=== PATIENT | female | born 1980 | race Caucasian/White ===

== ENCOUNTER 2024-08-30 16:05 | Inpatient (IN) | payer MEDICARE, MEDICAID, SELFPAY ==
--- NOTE | 2024-08-30 16:37 | ED_ITS ---
HPI - General Adult General Chief complaint: Psychiatric Symptoms Stated complaint: Section 12, psychiatric hx Time Seen by Provider: 08/30/24 16:14 Source: patient and EMS Mode of arrival: EMS Limitations: other (appears paranoid ) History of Present Illness ED Provider: THERESA Jacob HPI narrative: This is a 44-year-old female history of bipolar disorder and major depression, presents for abnormal behavior over the past few days. Patient poor historian and unable to tell me what is going on however she tells me she is coming off of some of her medicines such as amphetamines and she was recently started on a new medicine. According to section 12 which was filled out in the field patient experiencing paranioa, delusional, innability to sleep x few days. When I asked her how she is feeling she tells me she feels like her brother who was in shackles. Denies suicidal and homicidal ideation. No medical complaints. Related Data Allergies Allergy/AdvReac Type Severity Reaction Status Date / Time haloperidol [From Haldol] AdvReac Unknown DYSTONIA Verified 08/30/24 16:42 risperidone [From Risperdal] AdvReac Unknown TREMORS,JERKY Verified 08/30/24 16:42 MOVEMENTS From Haldol AdvReac Unknown DYSTONIA Uncoded 02/28/20 17:37 From Thorazine AdvReac Unknown LOW BLOOD Uncoded 02/28/20 17:37 PRESSURE Review of Systems 2 Review of Systems: Yes all other systems are reviewed and are negative [facility] Past Medical History Attestation statement: The following information was validated with the patient. Source: old records reviewed and nursing notes reviewed Medical History (Updated 08/30/24 @ 16:48 by Tereza Schumacher RN) MDD (major depressive disorder) Schizoaffective disorder Social History Social History Smoked in Last 30 Days: No Use of substances other than those prescribed or required for medical reasons: No Advance Directives: No Advance Directives Information Provided: No Do you have a plan to hurt others: No Plan Patient : No Physical Exam ED Vital Signs: Vital Signs - 24 hr 08/30/24 16:38 Temperature 97.9 F Pulse Rate 114 H Respiratory Rate 16 Blood Pressure 151/94 H Pulse Oximetry 97 Oxygen Delivery Method Room Air BMI result Body Mass Index 37.4 Vital signs state Appearance: Alert.? Oriented X3.? No acute distress.? Patient appears paranoid, and anxious Head: Normocephalic, atraumatic, no step-offs or deformities Eyes: Pupils equal, round and reactive to light.? ENT: Pharynx normal.? Neck: Normal inspection.? Neck supple.? CVS: Normal heart rate and rhythm.? Pulses normal.? Respiratory: No respiratory distress.? Breath sounds normal.? Abdomen: Soft and nontender.? Skin: Skin warm and dry.? Normal skin color.? Normal skin turgor.? Extremities: No lower extremity edema.? No calf ttp. 5/5 strength to bilateral upper and lower extremities Back: No midline tenderness, no C-spine tenderness, full range of motion, no CVA tenderness bilaterally Neuro: Oriented X 3.? No motor deficit.? No sensory deficit. CN 2-12 intact Course Reevaluation(s) Reevaluation #1: CBC unremarkable. Chemistry no acute findings meeting intervention. Beta hCG negative. UA with greater than 20 epithelial cells and 4+ bacteria this is likely contamination repeat UA at this time. Nurse aware of this. Patient has no UTI symptoms therefore will not treat for UTI at this time unless repeat urine suggest otherwise. Urine toxicology positive for amphetamines which patient reported she was taking. Ethanol negative. At this time patient to be placed into observation to allow more time to be evaluated by care team. At time observation was started patient common cooperative no acute distress will continue to monitor Time: 18:38 Medical Decision Making Medical Decision Making [facility] Narrative: 44-year-old female presents with paranoia, recent medication changes, inability to sleep times a few days. Physical exam patient appears paranoid. Alert and oriented x4. History and physical exam concerning for paranoia versus bipolar versus schizophrenia. Possibly secondary to medication changes or non med compliance. Will rule out metabolic derangements. Unlikely encephalitis, meningitis, acute intracranial hemorrhage, stroke. Medical clearance evaluation by care team Differential Diagnosis Differential Diagnoses: The differential diagnosis associated with the presentation includes (History and physical exam concerning for paranoia versus bipolar versus schizophrenia. Possibly secondary to medication changes or non med compliance. Will rule out metabolic derangements. Unlikely encephalitis, meningitis, acute intracranial hemorrhage, stroke.) Admission/Observation Consideration of admission/observation: Escalation of care including admission/observation considered Lab Data [facility] Lab Attestation statement: I reviewed the patient's lab results. 08/30/24 17:12 08/30/24 17:12 Labs: Lab Results 08/30/24 08/30/24 Range/Units 17:12 17:49 WBC 8.0 (4.8-10.8) X10*3/uL RBC 4.12 L (4.20-5.50) X10*6/uL Hgb 13.5 (12.0-16.0) g/dl Hct 36.9 L (37.0-47.0) % MCV 89.6 (80.0-98.0) fL MCH 32.8 (27.0-33.0) pg MCHC 36.6 H (31.0-35.0) g/dl RDW 11.5 (11.0-16.0) % Plt Count 276 (160-400) X10*3/uL MPV 8.5 L (9.4-12.3) fL Immature Gran % (Auto) 0.2 (0.0-0.4) % Neut % (Auto) 81.7 H (45-73) % Lymph % (Auto) 7.0 L (20-40) % [place] % (Auto) 10.7 (2-11) % Eos % (Auto) 0.2 (0-4) % Baso % (Auto) 0.2 (0-2) % Lymph # (Auto) 0.6 L (1.2-4.9) X10*3/uL [place] # (Auto) 0.9 (0.1-1.2) X10*3/uL Eos # (Auto) 0.0 (0.0-0.4) X10*3/uL Baso # (Auto) 0.0 (0.0-0.2) X10*3/uL Abs Immat Gran (auto) 0.02 (0.00-0.03) X10*3/uL Absolute Neuts (auto) 6.6 (2.0-8.3) x10*3/uL Absolute Nucleated RBC 0.000 (0.0-0.012) X10*3/uL Nucleated RBC % (auto) 0.0 (0.0-0.2) /100WBC Sodium 135 (135-145) mmol/L Potassium 4.2 (3.3-5.1) mmol/L Chloride 105 (96-108) mmol/L Carbon Dioxide 23 (22-29) mmol/L Anion Gap 11 L (12-20) BUN 14 (9-16) mg/dL Creatinine 0.66 (0.5-1.4) mg/dL Estim Creat Clear Calc 130.1 Estimated GFR > 60 Random Glucose 86 (60-115) mg/dL Calcium 9.1 (8.4-10.2) mg/dL Magnesium 1.9 (1.6-2.6) mg/dL Total Bilirubin 0.5 (0.0-1.0) mg/dL AST 18 (5-31) U/L ALT 26 (0-31) U/L Alkaline Phosphatase 53 (39-117) U/L Total Protein 7.2 (6.5-8.0) g/dL Albumin 4.1 (3.5-5.0) g/dL Beta HCG, Quant < 2 mIU/mL Urine Color Yellow Urine Appearance Turbid Urine pH 6.0 (5.0-9.0) Ur Specific [place] 1.020 (1.005-1.025) Urine Protein Negative (Neg-Trace) mg/dL Urine Glucose (UA) Negative (Negative) mg/dL Urine Ketones 15 (Negative) mg/dL Urine Blood Negative (Negative) Urine Nitrite Negative (Negative) Ur Leukocyte Esterase Small (1+) H (Negative) Urine RBC 0-2 (0-2) /HPF Urine WBC 11-20 H (0-5) /HPF Ur Squamous Epith Cells >20 (0-2) /HPF Urine Bacteria 4+ (None Seen) Hyaline Casts 0-2 (0-2) /LPF Urine Opiates Screen Not Detected (Not Detect) Ur Buprenorphine Scrn Not Detected (Not Detect) ng/mL Ur Oxycodone Screen Not Detected (Not Detect) ng/mL Urine Methadone Screen Not Detected (Not Detect) ng/mL Urine Fentanyl Screen Not Detected (Not Detect) Ur Barbiturates Screen Not Detected (Not Detect) Ur Phencyclidine Scrn Not Detected (Not Detect) Ur Amphetamines Screen POSITIVE H (Not Detect) U Benzodiazepines Scrn Not Detected (Not Detect) Urine Cocaine Screen Not Detected (Not Detect) U Marijuana (THC) Screen Not Detected (Not Detect) Ethyl Alcohol < 10 mg/dL Independent Interpretation I performed an independent interpretation of an: CT Scan Radiology Impression Discussion of test interpretation with radiology: I have reviewed the radiologist's reading. Independent Historian Clinical information obtained from an independent historian. History obtained from or confirmed by: EMS Prescription Management None avalible Chronic Conditions Patient?s care impacted by: Other (MDD, bipolar, schizoaffective) Critical Care Time Critical Care Time Critical Care Time: No Discharge Plan Discharge Clinical Impression: Depression, Paranoia, Bipolar 1 disorder Patient Disposition: Still a Patient Interventions: [place]-Suicide Risk Severity Scale Last Done: 08/30/24 16:49 Print Language: Armenian
[2024-08-30 16:38] VITALS: BP 151/94; PULSE 114; RESP 16; TEMP 36.6; O2SAT 97; BMI 37.4
--- NOTE | 2024-08-30 17:13 | PC.NURSE ---
mothers number Kat Kolber- [phone]
[2024-08-30 17:21] LABS: MANUAL DIFF FLAG NO
[2024-08-30 17:26] LABS: Basophils Percent Auto 0.2 % (0-2); Eosinophils Percent Auto 0.2 % (0-4); Hematocrit 36.9 % (37.0-47.0); Hemoglobin 13.5 g/dl (12.0-16.0); Imm Gran Abs Auto 0.02 X10*3/uL (0.00-0.03); Imm Gran Pct Auto 0.2 % (0.0-0.4); Lymphocytes Absolute Auto 0.6 X10*3/uL (1.2-4.9); Mean Corpuscular HGB Conc 36.6 g/dl (31.0-35.0); Mean Corpuscular Hemoglobin 32.8 pg (27.0-33.0); Mean Corpuscular Volume 89.6 fL (80.0-98.0); Mean Platelet Volume 8.5 fL (9.4-12.3); Monocytes Absolute Auto 0.9 X10*3/uL (0.1-1.2); Monocytes Percent Auto 10.7 % (2-11); Neutrophils Absolute Auto 6.6 x10*3/uL (2.0-8.3); Neutrophils Percent Auto 81.7 % (45-73); Platelet Count 276 X10*3/uL (160-400); Red Blood Count 4.12 X10*6/uL (4.20-5.50); Red Cell Distribution Width 11.5 % (11.0-16.0)
[2024-08-30 17:49] LABS: Alanine Aminotransferase 26 U/L (0-31); Albumin Level 4.1 g/dL (3.5-5.0); Alkaline Phosphatase 53 U/L (39-117); Anion Gap 11 (12-20); Aspartate Amino Transferase 18 U/L (5-31); Bilirubin Total 0.5 mg/dL (0.0-1.0); Blood Urea Nitrogen 14 mg/dL (9-16); Calcium 9.1 mg/dL (8.4-10.2); Carbon Dioxide 23 mmol/L (22-29); Chloride 105 mmol/L (96-108); Creatinine Clr Calc Pharmacy 130.1; Estimated Glomerular Filt Rate > 60; Ethanol < 10 mg/dL; Glucose Random 86 mg/dL (60-115); Magnesium 1.9 mg/dL (1.6-2.6); Potassium 4.2 mmol/L (3.3-5.1); Sodium 135 mmol/L (135-145); Total Protein 7.2 g/dL (6.5-8.0)
[2024-08-30 17:56] LABS: HCG Quantitative < 2 mIU/mL
[2024-08-30 18:09] LABS: Appearance Urine Turbid; Color Urine Yellow; Glucose Urine UA Negative (Negative); Leukocyte Esterase Urine Small (1+) (Negative); Nitrite Urine Negative (Negative); UMIC TRIGGER UACC YES; Urine Blood Negative (Negative); Urine Ketones 15 mg/dL (Negative); Urine Protein Negative (Neg-Trace)
[2024-08-30 18:14] LABS: Bacteria Urine 4+ (None Seen); Hyaline Casts Urine 0-2 /LPF (0-2); RBC Urine 0-2 /HPF (0-2); Squamous Epithelial Cell Urine >20 /HPF (0-2); UACC Culture Trigger YES
[2024-08-30 18:17] LABS: Amphetamine Screen Urine POSITIVE (Not Detect); Barbiturates, Urine Not Detected (Not Detect); Benzodiazepines Screen Urine Not Detected (Not Detect); Buprenorphine Scr Not Detected (Not Detect); Cannabinoid Screen Urine Not Detected (Not Detect); Cocaine Screen Urine Not Detected (Not Detect); Fentanyl, urine Not Detected (Not Detect); Methadone Screen, Urine Not Detected (Not Detect); Opiate Screen Urine Not Detected (Not Detect); Oxycodone Screen Urine Not Detected (Not Detect); Phencyclidine Screen Urine Not Detected (Not Detect)
[2024-08-30] MEDS: OLANZapine 10 MG TABLET PO ×2 (19:31→22:57)
[2024-08-30] MEDS: diphenhydrAMINE HCL 25 MG CAPSULE 50 MG PO (19:31)
[2024-08-30] MEDS: LORazepam 1 MG TABLET 2 MG PO (19:31)
--- NOTE | 2024-08-30 19:44 | ECG_ITS ---
Test Reason : QT PROLONG Blood Pressure : */* mmHG Vent. Rate : 102 BPM Atrial Rate : 102 BPM P-R Int : 158 ms QRS Dur : 96 ms QT Int : 350 ms P-R-T Axes : 43 14 19 degrees QTcB Int : 456 ms Sinus tachycardia Otherwise normal ECG When compared with ECG of 25-Feb-2009 07:13, No significant changes seen Referred By: Saskia Jacob Electronically Signed By: Rolo Ladd
--- NOTE | 2024-08-30 22:19 | PC.ADMIT ---
Keely is a 44 year old Swedish speaking female being admitted to on a 12b from the [facility] for Bipolar disorder with psychotic features and Stimulant use disorder. She She states that she has been using Adderall for the past 25 years . Per the crisis report the patients outside care team noted a change in the patients mental status, noting a new onset of confusion, paranoia, and delusional thought process. the patients mother and outside providers confirmed that the patients change in behavior seems to coincide with the patient being started on Caplyta last week. Keely is alert to self but is unsure of where she is or why she is here. patient declined to sign any admission documentation and was minimally cooperative with the admission. her skin check was unremarkable, the patient was partially oriented to her room, the nurses station and day room.
[2024-08-30] MEDS: traZODone HCL 50 MG TABLET PO (22:57)
[2024-08-30 23:05] VITALS: BP 140/83; PULSE 103; RESP 18; TEMP 36.9; O2SAT 94; BMI 36.0
[2024-08-31 07:30] VITALS: BP 128/76; PULSE 94; RESP 16; TEMP 36.8; O2SAT 98
[2024-08-31 08:00] VITALS: BP 128/76; PULSE 94; RESP 16; TEMP 36.8; O2SAT 93
[2024-08-31 08:28] LABS: Estimated Average Glucose 94 mg/dL; Hemoglobin A1c % 4.9 % (<6.0); Total Hemoglobin (HGBA1C) 3634.8008 umol/L
[2024-08-31 08:29] LABS: Alanine Aminotransferase 25 U/L (0-31); Albumin Level 4.2 g/dL (3.5-5.0); Alkaline Phosphatase 53 U/L (39-117); Anion Gap 11 (12-20); Aspartate Amino Transferase 17 U/L (5-31); Bilirubin Total 0.4 mg/dL (0.0-1.0); Blood Urea Nitrogen 11 mg/dL (9-16); Carbon Dioxide 24 mmol/L (22-29); Chloride 109 mmol/L (96-108); Creatinine Clr Calc Pharmacy 110.2; Estimated Glomerular Filt Rate > 60; Glucose Fasting 94 mg/dL (60-99); Potassium 3.9 mmol/L (3.3-5.1); Sodium 140 mmol/L (135-145); Total Protein 7.3 g/dL (6.5-8.0)
[2024-08-31 08:34] LABS: Cholesterol 183 mg/dL (<200); HDL Cholesterol 56 mg/dL (>40); LDL Cholesterol Calculated 113 mg/dL (<100); Triglycerides 74 mg/dL (<150)
[2024-08-31 08:50] LABS: Thyroid Stimulating Hormone 0.92 uIU/mL (0.32-4.0)
[2024-08-31 09:03] LABS: Vitamin B12 1108 pg/mL (200-900)
[2024-08-31] MEDS: Lidocaine 4 % Patch ADH..PATCH 3 PATCH TRANSDERMA (12:22)
[2024-08-31] MEDS: Omeprazole 20 MG CAPSULE.DR PO ×2 (12:23→16:57)
[2024-08-31] MEDS: OXcarbazepine 150 MG TABLET PO ×2 (12:23→20:56)
[2024-08-31] MEDS: Levothyroxine Sodium 88 MCG TABLET PO (12:23)
[2024-08-31] MEDS: amLODIPine Besylate 10 MG TABLET PO (12:23)
[2024-08-31] MEDS: Propranolol HCL 20 MG TABLET PO (12:23)
[2024-08-31] MEDS: Magnesium Oxide 400 MG TABLET PO (12:24)
[2024-08-31] MEDS: Sertraline HCL 100 MG TABLET PO (12:24)
[2024-08-31] MEDS: Liothyronine Sodium 25 MCG TABLET 12.5 MCG PO ×2 (12:24→20:54)
[2024-08-31] MEDS: Fluticasone/Vilanterol 200/25 BLST.W.DEV 1 PUFF INHALE (14:00)
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
[2024-08-31] MEDS: Brexpiprazole 1 MG TABLET PO (16:57)
[2024-08-31] MEDS: OLANZapine 10 MG TABLET PO (17:02)
[2024-08-31] MEDS: Acetaminophen 325 MG TABLET 650 MG PO (17:04)
[2024-08-31 20:00] VITALS: BP 136/79; PULSE 100; RESP 18; TEMP 36.9; O2SAT 99
[2024-08-31] MEDS: clonazePAM 1 MG TABLET PO (20:55)
[2024-08-31] MEDS: bisacodyL 5 MG TABLET.DR 10 MG PO (20:55)
[2024-08-31] MEDS: Docusate Sodium 100 MG CAPSULE PO (20:55)
[2024-08-31] MEDS: traZODone HCL 50 MG TABLET PO (20:56)
[2024-08-31] MEDS: NaPROXEN 500 MG TABLET PO (20:59)
[2024-09-01] MEDS: OLANZapine 10 MG TABLET PO ×2 (05:34→16:03)
[2024-09-01] MEDS: Levothyroxine Sodium 88 MCG TABLET PO (05:34)
[2024-09-01] MEDS: Acetaminophen 325 MG TABLET 650 MG PO (06:16)
[2024-09-01] MEDS: hydrOXYzine HCL 25 MG TABLET PO ×2 (06:19→16:03)
[2024-09-01 08:38] VITALS: BP 133/62; PULSE 108; RESP 16; TEMP 36.9; O2SAT 97
[2024-09-01] MEDS: Omeprazole 20 MG CAPSULE.DR PO ×2 (08:56→16:00)
[2024-09-01] MEDS: Sertraline HCL 100 MG TABLET 200 MG PO (08:56)
[2024-09-01] MEDS: amLODIPine Besylate 10 MG TABLET PO (08:57)
[2024-09-01] MEDS: OXcarbazepine 150 MG TABLET PO ×2 (08:57→21:18)
[2024-09-01] MEDS: Brexpiprazole 1 MG TABLET PO (08:57)
[2024-09-01] MEDS: Magnesium Oxide 400 MG TABLET PO (08:57)
[2024-09-01] MEDS: Liothyronine Sodium 25 MCG TABLET 12.5 MCG PO ×2 (08:57→21:17)
[2024-09-01] MEDS: Propranolol HCL 20 MG TABLET PO (08:57)
--- NOTE | 2024-09-01 08:58 | P.PNPSI_ITS ---
Subjective Subjective Date of Service: 09/01/24 Reason For Visit: Section 12, psychiatric hx Interim History: Patient wondering about her ADHD treatment. We discuss that due to her current psychotic symptoms, focus is to get those under control and that ADHD tx can exacerbate psychosis. Patient verbalizes understanding. She is accepting of the same. Appears anxious. Denies SI/HI. Review of Systems Review of Systems Yes all other systems are reviewed and are negative Mental Status Exam Mental Status Exam Patient Appearance: Disheveled Patient Orientation: Person, Place, Time and Situation Level of Consciousness: Awake Patient Behavior: Guarded, Cooperative, Good Eye Contact and Crying Mood Description: Anxious Affect Description: Anxious Ability to Follow Directions: Good Speech Pattern: Mumbled Diagnostics Vital Signs (24Hr): Vital Signs - 24 hr 08/31/24 20:00 09/01/24 08:38 Temperature 98.5 F 98.4 F Pulse Rate 100 108 H Respiratory Rate 18 16 Blood Pressure 136/79 133/62 Pulse Oximetry 99 97 Oxygen Delivery Method Room Air Room Air BMI result Body Mass Index 36.0 Labs 08/30/24 17:12 08/31/24 07:26 Labs: Laboratory Results - last 48 hr 08/30/24 08/30/24 08/31/24 17:12 17:49 07:26 WBC 8.0 RBC 4.12 L Hgb 13.5 Hct 36.9 L MCV 89.6 MCH 32.8 MCHC 36.6 H RDW 11.5 Plt Count 276 MPV 8.5 L Immature Gran % (Auto) 0.2 Neut % (Auto) 81.7 H Lymph % (Auto) 7.0 L [place] % (Auto) 10.7 Eos % (Auto) 0.2 Baso % (Auto) 0.2 Lymph # (Auto) 0.6 L [place] # (Auto) 0.9 Eos # (Auto) 0.0 Baso # (Auto) 0.0 Abs Immat Gran (auto) 0.02 Absolute Neuts (auto) 6.6 Absolute Nucleated RBC 0.000 Nucleated RBC % (auto) 0.0 Sodium 135 140 Potassium 4.2 3.9 Chloride 105 109 H Carbon Dioxide 23 24 Anion Gap 11 L 11 L BUN 14 11 Creatinine 0.66 0.71 Estim Creat Clear Calc 130.1 110.2 Estimated GFR > 60 > 60 Random Glucose 86 Fasting Glucose 94 Estimat Average Glucose 94 Hemoglobin A1c % 4.9 Calcium 9.1 9.0 Magnesium 1.9 Total Bilirubin 0.5 0.4 AST 18 17 ALT 26 25 Alkaline Phosphatase 53 53 Total Protein 7.2 7.3 Albumin 4.1 4.2 Triglycerides 74 Cholesterol 183 LDL Cholesterol, Calc 113 H HDL Cholesterol 56 Vitamin B12 1108 H Folate 13.0 TSH 0.92 Beta HCG, Quant < 2 Urine Color Yellow Urine Appearance Turbid Urine pH 6.0 Ur Specific [place] 1.020 Urine Protein Negative Urine Glucose (UA) Negative Urine Ketones 15 Urine Blood Negative Urine Nitrite Negative Ur Leukocyte Esterase Small (1+) H Urine RBC 0-2 Urine WBC 11-20 H Ur Squamous Epith Cells >20 Urine Bacteria 4+ Hyaline Casts 0-2 Urine Opiates Screen Not Detected Ur Buprenorphine Scrn Not Detected Ur Oxycodone Screen Not Detected Urine Methadone Screen Not Detected Urine Fentanyl Screen Not Detected Ur Barbiturates Screen Not Detected Ur Phencyclidine Scrn Not Detected Ur Amphetamines Screen POSITIVE H U Benzodiazepines Scrn Not Detected Urine Cocaine Screen Not Detected U Marijuana (THC) Screen Not Detected Ethyl Alcohol < 10 Medications Medications Current Medications Acetaminophen (Acetaminophen 325 Mg Tablet) 650 mg PO Q6H PRN PRN Reason: Headache/Pain, Scale 1-10 Last Admin: 09/01/24 06:16 Dose: 650 mg Al Hydroxide/Mg Hydroxide (Magnesium Hydrox/Alum Hydrox 30 Ml Oral.Susp) 30 ml PO Q6H PRN PRN Reason: Heartburn/Nausea Amlodipine Besylate (Amlodipine Besylate 10 Mg Tablet) 10 mg PO DAILY MEHUL; Protocol Last Admin: 08/31/24 12:23 Dose: 10 mg Bisacodyl (Bisacodyl 5 Mg Tablet.Dr) 10 mg PO BEDTIME MEHUL Last Admin: 08/31/24 20:55 Dose: 10 mg Brexpiprazole (Brexpiprazole 1 Mg Tablet) 1 mg PO DAILY MEHUL Last Admin: 08/31/24 16:57 Dose: 1 mg Clonazepam (Clonazepam 1 Mg Tablet) 1 mg PO BEDTIME MEHUL Last Admin: 08/31/24 20:55 Dose: 1 mg Docusate Sodium (Docusate Sodium 100 Mg Capsule) 100 mg PO BEDTIME MEHUL Last Admin: 08/31/24 20:55 Dose: 100 mg Fluticasone/Vilanterol (Fluticasone/Vilanterol 200/25 Blst.W.Dev) 1 puff INHALE RDAILY [facility] Last Admin: 08/31/24 14:00 Dose: 1 puff Hydroxyzine HCl (Hydroxyzine Hcl 25 Mg Tablet) 25 mg PO Q6H PRN PRN Reason: mild anxiety Last Admin: 09/01/24 06:19 Dose: 25 mg Levothyroxine Sodium (Levothyroxine Sodium 88 Mcg Tablet) 88 mcg PO DAILY@0600 [facility] Last Admin: 09/01/24 05:34 Dose: 88 mcg Lidocaine (Lidocaine 4 % Patch Adh..Patch) 3 patch TRANSDERMA Q12H [facility] Last Admin: 09/01/24 02:09 Dose: Not Given Liothyronine Sodium (Liothyronine Sodium 25 Mcg Tablet) 12.5 mcg PO BID [facility] Last Admin: 08/31/24 20:54 Dose: 12.5 mcg Magnesium Hydroxide (Milk Of Magnesia 30 Ml Oral.Susp) 30 ml PO DAILY PRN PRN Reason: Constipation Magnesium Oxide (Magnesium Oxide 400 Mg Tablet) 400 mg PO DAILY [facility] Last Admin: 08/31/24 12:24 Dose: 400 mg Naproxen (Naproxen 500 Mg Tablet) 500 mg PO BID PRN PRN Reason: Pain, Moderate(Pain Scale 4-6) Last Admin: 08/31/24 20:59 Dose: 500 mg Olanzapine (Olanzapine 10 Mg Tablet) 10 mg PO Q6H PRN PRN Reason: Anxiety Last Admin: 09/01/24 05:34 Dose: 10 mg Omeprazole (Omeprazole 20 Mg Capsule.Dr) 20 mg PO BID@0630,1630 [facility] Last Admin: 08/31/24 16:57 Dose: 20 mg Oxcarbazepine (Oxcarbazepine 150 Mg Tablet) 150 mg PO BID [facility] Last Admin: 08/31/24 20:56 Dose: 150 mg Propranolol HCl (Propranolol Hcl 20 Mg Tablet) 20 mg PO DAILY [facility]; Protocol Last Admin: 08/31/24 12:23 Dose: 20 mg Sertraline HCl (Sertraline Hcl 100 Mg Tablet) 200 mg PO DAILY [facility] Trazodone HCl (Trazodone Hcl 50 Mg Tablet) 50 mg PO BEDTIME MRX1 PRN PRN Reason: Insomnia Last Admin: 08/31/24 20:56 Dose: 50 mg Allergies Allergies Allergy/AdvReac Type Severity Reaction Status Date / Time haloperidol [From Haldol] AdvReac Unknown DYSTONIA Verified 08/30/24 16:42 risperidone [From Risperdal] AdvReac Unknown TREMORS,JERKY Verified 08/30/24 16:42 MOVEMENTS From Haldol AdvReac Unknown DYSTONIA Uncoded 02/28/20 17:37 From Thorazine AdvReac Unknown LOW BLOOD Uncoded 02/28/20 17:37 PRESSURE Assessment & Plan Assessment & Plan (1) Bipolar 1 disorder: Status: Acute Code(s): F31.9 - Bipolar disorder, unspecified (2) PTSD (post-traumatic stress disorder): Status: Acute Code(s): F43.10 - Post-traumatic stress disorder, unspecified (3) ADHD: Status: Acute Code(s): F90.9 - Attention-deficit hyperactivity disorder, unspecified type (4) Stimulant abuse: Status: Acute Code(s): F15.10 - Other stimulant abuse, uncomplicated Plan Patient is a 44-year-old female with history of bipolar disorder, PTSD, and stimulant abuse who [place] [facility] [place] 12 due to confusion, paranoia, and hallucinations secondary to medication changes. Plan: 12B 15 minute safety checks continue home medications hold adderall dc caplyta start: rexulti 1mg PO daily obtain collateral encourage groups discharge planning 09/01: Continue current management and treatment plan. Reason for continued inpatient stay Substantial Risk for: inability to function and rapid decompensation Time Spent With Patient Time: Total time managing care of this patient today ____ minutes.
[2024-09-01] MEDS: Fluticasone/Vilanterol 200/25 BLST.W.DEV 1 PUFF INHALE (08:59)
[2024-09-01] MEDS: Lidocaine 4 % Patch ADH..PATCH 3 PATCH TRANSDERMA (09:44)
[2024-09-01] MEDS: NaPROXEN 500 MG TABLET PO (16:28)
[2024-09-01 20:00] VITALS: BP 118/56; PULSE 96; RESP 14; TEMP 37.2; O2SAT 94
[2024-09-01] MEDS: bisacodyL 5 MG TABLET.DR 10 MG PO (21:17)
[2024-09-01] MEDS: traZODone HCL 50 MG TABLET PO (21:18)
[2024-09-01] MEDS: clonazePAM 1 MG TABLET PO (21:18)
[2024-09-01] MEDS: Docusate Sodium 100 MG CAPSULE PO (21:18)
[2024-09-02] MEDS: Levothyroxine Sodium 88 MCG TABLET PO (06:01)
[2024-09-02 08:29] VITALS: BP 118/74; PULSE 115; RESP 18; TEMP 36.8; O2SAT 96
[2024-09-02] MEDS: Liothyronine Sodium 25 MCG TABLET 12.5 MCG PO ×2 (08:41→21:24)
[2024-09-02] MEDS: Fluticasone/Vilanterol 200/25 BLST.W.DEV 1 PUFF INHALE (08:41)
[2024-09-02] MEDS: NaPROXEN 500 MG TABLET PO (08:42)
[2024-09-02] MEDS: amLODIPine Besylate 10 MG TABLET PO (08:42)
[2024-09-02] MEDS: Magnesium Oxide 400 MG TABLET PO (08:42)
[2024-09-02] MEDS: hydrOXYzine HCL 25 MG TABLET PO ×2 (08:43→15:45)
[2024-09-02] MEDS: OXcarbazepine 150 MG TABLET PO ×2 (08:43→21:25)
[2024-09-02] MEDS: Propranolol HCL 20 MG TABLET PO (08:43)
[2024-09-02] MEDS: Brexpiprazole 1 MG TABLET PO (08:43)
[2024-09-02] MEDS: Sertraline HCL 100 MG TABLET 200 MG PO (08:43)
[2024-09-02] MEDS: Omeprazole 20 MG CAPSULE.DR PO ×2 (08:43→15:45)
[2024-09-02] MEDS: Lidocaine 4 % Patch ADH..PATCH 3 PATCH TRANSDERMA ×2 (09:24→21:23)
--- NOTE | 2024-09-02 12:08 | HO.PSYCHPN ---
Subjective Subjective Date of Service: 09/02/24 Reason For Visit: Section 12, psychiatric hx Interim History: Patient feels better after DC Caplyta and restarting Rexulti. She is more organized. More engaged on the unit. She reports her mood is improved. Appears less anxious. Denies SI/HI. Review of Systems Review of Systems Yes all other systems are reviewed and are negative Mental Status Exam Mental Status Exam Patient Appearance: Disheveled Patient Orientation: Person, Place, Time and Situation Level of Consciousness: Awake Patient Behavior: Guarded, Cooperative, Good Eye Contact and Crying Mood Description: Anxious Affect Description: Anxious Ability to Follow Directions: Good Speech Pattern: Mumbled Diagnostics Vital Signs (24Hr): Vital Signs - 24 hr 09/01/24 20:00 09/02/24 08:29 Temperature 99 F 98.3 F Pulse Rate 96 115 H Respiratory Rate 14 18 Blood Pressure 118/56 L 118/74 Pulse Oximetry 94 96 Oxygen Delivery Method Room Air Room Air BMI result Body Mass Index 36.0 Labs 08/30/24 17:12 08/31/24 07:26 Medications Medications Current Medications Acetaminophen (Acetaminophen 325 Mg Tablet) 650 mg PO Q6H PRN PRN Reason: Headache/Pain, Scale 1-10 Last Admin: 09/01/24 06:16 Dose: 650 mg Al Hydroxide/Mg Hydroxide (Magnesium Hydrox/Alum Hydrox 30 Ml Oral.Susp) 30 ml PO Q6H PRN PRN Reason: Heartburn/Nausea Amlodipine Besylate (Amlodipine Besylate 10 Mg Tablet) 10 mg PO DAILY MEHUL; Protocol Last Admin: 09/02/24 08:42 Dose: 10 mg Bisacodyl (Bisacodyl 5 Mg Tablet.) 10 mg PO BEDTIME MEHUL Last Admin: 09/01/24 21:17 Dose: 10 mg Brexpiprazole (Brexpiprazole 1 Mg Tablet) 1 mg PO DAILY MEHUL Last Admin: 09/02/24 08:43 Dose: 1 mg Clonazepam (Clonazepam 1 Mg Tablet) 1 mg PO BEDTIME MEHUL Last Admin: 09/01/24 21:18 Dose: 1 mg Docusate Sodium (Docusate Sodium 100 Mg Capsule) 100 mg PO BEDTIME MEHUL Last Admin: 09/01/24 21:18 Dose: 100 mg Fluticasone/Vilanterol (Fluticasone/Vilanterol 200/25 Blst.W.Dev) 1 puff INHALE RDAILY [facility] Last Admin: 09/02/24 08:41 Dose: 1 puff Hydroxyzine HCl (Hydroxyzine Hcl 25 Mg Tablet) 25 mg PO Q6H PRN PRN Reason: mild anxiety Last Admin: 09/02/24 08:43 Dose: 25 mg Levothyroxine Sodium (Levothyroxine Sodium 88 Mcg Tablet) 88 mcg PO DAILY@0600 [facility] Last Admin: 09/02/24 06:01 Dose: 88 mcg Lidocaine (Lidocaine 4 % Patch Adh..Patch) 3 patch TRANSDERMA BID [facility] Last Admin: 09/02/24 09:24 Dose: 3 patch Liothyronine Sodium (Liothyronine Sodium 25 Mcg Tablet) 12.5 mcg PO BID [facility] Last Admin: 09/02/24 08:41 Dose: 12.5 mcg Magnesium Hydroxide (Milk Of Magnesia 30 Ml Oral.Susp) 30 ml PO DAILY PRN PRN Reason: Constipation Magnesium Oxide (Magnesium Oxide 400 Mg Tablet) 400 mg PO DAILY [facility] Last Admin: 09/02/24 08:42 Dose: 400 mg Naproxen (Naproxen 500 Mg Tablet) 500 mg PO BID PRN PRN Reason: Pain, Moderate(Pain Scale 4-6) Last Admin: 09/02/24 08:42 Dose: 500 mg Olanzapine (Olanzapine 10 Mg Tablet) 10 mg PO Q6H PRN PRN Reason: Anxiety Last Admin: 09/01/24 16:03 Dose: 10 mg Omeprazole (Omeprazole 20 Mg Capsule.Dr) 20 mg PO BID@0630,1630 [facility] Last Admin: 09/02/24 08:43 Dose: 20 mg Oxcarbazepine (Oxcarbazepine 150 Mg Tablet) 150 mg PO BID [facility] Last Admin: 09/02/24 08:43 Dose: 150 mg Propranolol HCl (Propranolol Hcl 20 Mg Tablet) 20 mg PO DAILY [facility]; Protocol Last Admin: 09/02/24 08:43 Dose: 20 mg Sertraline HCl (Sertraline Hcl 100 Mg Tablet) 200 mg PO DAILY [facility] Last Admin: 09/02/24 08:43 Dose: 200 mg Trazodone HCl (Trazodone Hcl 50 Mg Tablet) 50 mg PO BEDTIME MRX1 PRN PRN Reason: Insomnia Last Admin: 09/01/24 21:18 Dose: 50 mg Allergies Allergies Allergy/AdvReac Type Severity Reaction Status Date / Time haloperidol [From Haldol] AdvReac Unknown DYSTONIA Verified 08/30/24 16:42 risperidone [From Risperdal] AdvReac Unknown TREMORS,JERKY Verified 08/30/24 16:42 MOVEMENTS From Haldol AdvReac Unknown DYSTONIA Uncoded 02/28/20 17:37 From Thorazine AdvReac Unknown LOW BLOOD Uncoded 02/28/20 17:37 PRESSURE Assessment & Plan Assessment & Plan (1) Bipolar 1 disorder: Status: Acute Code(s): F31.9 - Bipolar disorder, unspecified (2) PTSD (post-traumatic stress disorder): Status: Acute Code(s): F43.10 - Post-traumatic stress disorder, unspecified (3) ADHD: Status: Acute Code(s): F90.9 - Attention-deficit hyperactivity disorder, unspecified type (4) Stimulant abuse: Status: Acute Code(s): F15.10 - Other stimulant abuse, uncomplicated Plan Patient is a 44-year-old female with history of bipolar disorder, PTSD, and stimulant abuse who presented to [facility] [place] [facility] on [place] section 12 due to confusion, paranoia, and hallucinations secondary to medication changes. Plan: 12B 15 minute safety checks continue home medications hold adderall dc caplyta start: rexulti 1mg PO daily obtain collateral encourage groups discharge planning 09/01: Continue current management and treatment plan. 09/02: Increase Rexulti tomorrow to 2 mg. Reason for continued inpatient stay Substantial Risk for: inability to function and rapid decompensation Time Spent With Patient Time: Total time managing care of this patient today ____ minutes.
[2024-09-02] MEDS: Throat Lozenge, Medicated LOZENGE 1 LOZENGE MUCOUS MEM (13:41)
[2024-09-02] MEDS: Acetaminophen 325 MG TABLET 650 MG PO ×2 (15:16→21:23)
[2024-09-02 20:00] VITALS: BP 129/72; PULSE 108; RESP 16; O2SAT 95
[2024-09-02] MEDS: bisacodyL 5 MG TABLET.DR 10 MG PO (21:25)
[2024-09-02] MEDS: Docusate Sodium 100 MG CAPSULE PO (21:25)
[2024-09-02] MEDS: clonazePAM 1 MG TABLET PO (21:25)
[2024-09-02] MEDS: traZODone HCL 50 MG TABLET PO (21:25)
[2024-09-03] MEDS: Throat Lozenge, Medicated LOZENGE 1 LOZENGE MUCOUS MEM (02:04)
[2024-09-03] MEDS: Levothyroxine Sodium 88 MCG TABLET PO (06:47)
[2024-09-03 07:45] VITALS: BP 132/81; PULSE 115; RESP 16; TEMP 37.1; O2SAT 98
[2024-09-03 08:50] VITALS: BP 132/81; PULSE 115
[2024-09-03] MEDS: Propranolol HCL 20 MG TABLET PO (08:50)
[2024-09-03] MEDS: Liothyronine Sodium 25 MCG TABLET 12.5 MCG PO ×2 (08:51→20:58)
[2024-09-03] MEDS: Omeprazole 20 MG CAPSULE.DR PO ×2 (08:51→16:21)
[2024-09-03] MEDS: OXcarbazepine 150 MG TABLET PO ×2 (08:51→20:58)
[2024-09-03 08:52] VITALS: BP 132/81
[2024-09-03] MEDS: Magnesium Oxide 400 MG TABLET PO (08:52)
[2024-09-03] MEDS: Sertraline HCL 100 MG TABLET 200 MG PO (08:52)
[2024-09-03] MEDS: amLODIPine Besylate 10 MG TABLET PO (08:52)
[2024-09-03] MEDS: Lidocaine 4 % Patch ADH..PATCH 3 PATCH TRANSDERMA ×2 (08:53→20:20)
[2024-09-03] MEDS: Fluticasone/Vilanterol 200/25 BLST.W.DEV 1 PUFF INHALE (08:56)
[2024-09-03] MEDS: Brexpiprazole 2 MG TABLET PO (09:38)
[2024-09-03] MEDS: Acetaminophen 325 MG TABLET 650 MG PO ×2 (11:50→20:58)
--- NOTE | 2024-09-03 12:44 | P.PNPSI_ITS ---
Subjective Subjective Date of Service: 09/03/24 Reason For Visit: Section 12, psychiatric hx Subjective Notes: Section 12B Interim History: Active on unit, social with peers. attending groups. Patient reports feeling a lot better than when she first came into the hospital. Pt stated, I'm not hearing voices today. I want to go home tomorrow . denies SI/HI/VH/AH. 12b up on 09/04/24; pt reports she plans on following up with her outpatient providers. Medication Compliance: Yes Side effects from medications: No Attending Groups: Yes Mental Status Exam Mental Status Exam Narrative: Pt is alert and oriented; behavior is cooperative and calm; dressed in casual attire; mood is described as good ; eye contact appropriate; Speech is normal rate, volume and not pressured; thought process is organized; Thought content is on discharge; denies SI/HI/AH/VH. Diagnostics Vital Signs (24Hr): Vital Signs - 24 hr 09/02/24 20:00 09/03/24 07:45 09/03/24 08:50 Temperature 98.7 F Pulse Rate 108 H 115 H 115 H Respiratory Rate 16 16 Blood Pressure 129/72 132/81 132/81 Pulse Oximetry 95 98 Oxygen Delivery Method Room Air Room Air 09/03/24 08:52 Temperature Pulse Rate Respiratory Rate Blood Pressure 132/81 Pulse Oximetry Oxygen Delivery Method BMI result Body Mass Index 36.0 Labs 08/30/24 17:12 08/31/24 07:26 Medications Medications Current Medications Acetaminophen (Acetaminophen 325 Mg Tablet) 650 mg PO Q6H PRN PRN Reason: Headache/Pain, Scale 1-10 Last Admin: 09/03/24 11:50 Dose: 650 mg Al Hydroxide/Mg Hydroxide (Magnesium Hydrox/Alum Hydrox 30 Ml Oral.Susp) 30 ml PO Q6H PRN PRN Reason: Heartburn/Nausea Amlodipine Besylate (Amlodipine Besylate 10 Mg Tablet) 10 mg PO DAILY MEHUL; Protocol Last Admin: 09/03/24 08:52 Dose: 10 mg Benzocaine (Throat Lozenge, Medicated Lozenge) 1 lozenge MUCOUS MEM Q2H PRN PRN Reason: Sore Throat Last Admin: 09/03/24 02:04 Dose: 1 lozenge Bisacodyl (Bisacodyl 5 Mg Tablet.Dr) 10 mg PO BEDTIME MEHUL Last Admin: 09/02/24 21:25 Dose: 10 mg Brexpiprazole (Brexpiprazole 2 Mg Tablet) 2 mg PO DAILY [facility] Last Admin: 09/03/24 09:38 Dose: 2 mg Clonazepam (Clonazepam 1 Mg Tablet) 1 mg PO BEDTIME [facility] Last Admin: 09/02/24 21:25 Dose: 1 mg Docusate Sodium (Docusate Sodium 100 Mg Capsule) 100 mg PO BEDTIME [facility] Last Admin: 09/02/24 21:25 Dose: 100 mg Fluticasone/Vilanterol (Fluticasone/Vilanterol 200/25 Blst.W.Dev) 1 puff INHALE RDAILY [facility] Last Admin: 09/03/24 08:56 Dose: 1 puff Hydroxyzine HCl (Hydroxyzine Hcl 25 Mg Tablet) 25 mg PO Q6H PRN PRN Reason: mild anxiety Last Admin: 09/02/24 15:45 Dose: 25 mg Levothyroxine Sodium (Levothyroxine Sodium 88 Mcg Tablet) 88 mcg PO DAILY@0600 [facility] Last Admin: 09/03/24 06:47 Dose: 88 mcg Lidocaine (Lidocaine 4 % Patch Adh..Patch) 3 patch TRANSDERMA BID [facility] Last Admin: 09/03/24 08:53 Dose: 3 patch Liothyronine Sodium (Liothyronine Sodium 25 Mcg Tablet) 12.5 mcg PO BID [facility] Last Admin: 09/03/24 08:51 Dose: 12.5 mcg Magnesium Hydroxide (Milk Of Magnesia 30 Ml Oral.Susp) 30 ml PO DAILY PRN PRN Reason: Constipation Magnesium Oxide (Magnesium Oxide 400 Mg Tablet) 400 mg PO DAILY [facility] Last Admin: 09/03/24 08:52 Dose: 400 mg Naproxen (Naproxen 500 Mg Tablet) 500 mg PO BID PRN PRN Reason: Pain, Moderate(Pain Scale 4-6) Last Admin: 09/02/24 08:42 Dose: 500 mg Olanzapine (Olanzapine 10 Mg Tablet) 10 mg PO Q6H PRN PRN Reason: Anxiety Last Admin: 09/01/24 16:03 Dose: 10 mg Omeprazole (Omeprazole 20 Mg Capsule.Dr) 20 mg PO BID@0630,1630 [facility] Last Admin: 09/03/24 08:51 Dose: 20 mg Oxcarbazepine (Oxcarbazepine 150 Mg Tablet) 150 mg PO BID [facility] Last Admin: 09/03/24 08:51 Dose: 150 mg Propranolol HCl (Propranolol Hcl 20 Mg Tablet) 20 mg PO DAILY [facility]; Protocol Last Admin: 09/03/24 08:50 Dose: 20 mg Sertraline HCl (Sertraline Hcl 100 Mg Tablet) 200 mg PO DAILY [facility] Last Admin: 09/03/24 08:52 Dose: 200 mg Trazodone HCl (Trazodone Hcl 50 Mg Tablet) 50 mg PO BEDTIME MRX1 PRN PRN Reason: Insomnia Last Admin: 09/02/24 21:25 Dose: 50 mg Allergies Allergies Allergy/AdvReac Type Severity Reaction Status Date / Time haloperidol [From Haldol] AdvReac Unknown DYSTONIA Verified 08/30/24 16:42 risperidone [From Risperdal] AdvReac Unknown TREMORS,JERKY Verified 08/30/24 16:42 MOVEMENTS From Haldol AdvReac Unknown DYSTONIA Uncoded 02/28/20 17:37 From Thorazine AdvReac Unknown LOW BLOOD Uncoded 02/28/20 17:37 PRESSURE Assessment & Plan Assessment & Plan (1) Bipolar 1 disorder: Status: Acute Code(s): F31.9 - Bipolar disorder, unspecified (2) PTSD (post-traumatic stress disorder): Status: Acute Code(s): F43.10 - Post-traumatic stress disorder, unspecified (3) ADHD: Status: Acute Code(s): F90.9 - Attention-deficit hyperactivity disorder, unspecified type (4) Stimulant abuse: Status: Acute Code(s): F15.10 - Other stimulant abuse, uncomplicated Plan Patient is a 44-year-old female with history of bipolar disorder, PTSD, and stimulant abuse who [place] [facility] [place] due to confusion, paranoia, and hallucinations secondary to medication changes. Plan: 12B 15 minute safety checks continue home medications hold adderall dc caplyta start: rexulti 1mg PO daily obtain collateral encourage groups discharge planning 09/01: Continue current management and treatment plan. 09/02: Increase Rexulti tomorrow to 2 mg. 09/03: Active on unit, social with peers. attending groups. Patient reports feeling a lot better than when she first came into the hospital. Pt stated, I'm not hearing voices today. I want to go home tomorrow . denies SI/HI/VH/AH. 12b up on 09/04/24; pt reports she plans on following up with her outpatient providers. Patient educated on: diagnosis and medication risk/benefits Reason for continued inpatient stay Substantial Risk for: stable for discharge Time Spent With Patient Time: Total time managing care of this patient today __20__ minutes.
[2024-09-03] MEDS: Magnesium Hydrox/Alum Hydrox 30 ML ORAL.SUSP PO (12:50)
[2024-09-03] MEDS: hydrOXYzine HCL 25 MG TABLET PO ×2 (12:50→16:21)
[2024-09-03 20:00] VITALS: BP 137/76; PULSE 98; RESP 18; TEMP 37.2; O2SAT 96
[2024-09-03] MEDS: clonazePAM 1 MG TABLET PO (20:58)
[2024-09-03] MEDS: traZODone HCL 50 MG TABLET PO (21:00)
[2024-09-04] MEDS: Levothyroxine Sodium 88 MCG TABLET PO (04:51)
[2024-09-04] MEDS: Acetaminophen 325 MG TABLET 650 MG PO (04:51)
[2024-09-04] MEDS: Omeprazole 20 MG CAPSULE.DR PO (06:16)
[2024-09-04 07:49] VITALS: BP 131/80; PULSE 103; RESP 14; TEMP 36.9; O2SAT 98
[2024-09-04] MEDS: Propranolol HCL 20 MG TABLET PO (08:00)
[2024-09-04] MEDS: OXcarbazepine 150 MG TABLET PO (08:00)
[2024-09-04] MEDS: Fluticasone/Vilanterol 200/25 BLST.W.DEV 1 PUFF INHALE (08:00)
[2024-09-04] MEDS: Brexpiprazole 2 MG TABLET PO (08:00)
[2024-09-04] MEDS: amLODIPine Besylate 10 MG TABLET PO (08:01)
[2024-09-04] MEDS: Magnesium Oxide 400 MG TABLET PO (08:01)
[2024-09-04] MEDS: Sertraline HCL 100 MG TABLET 200 MG PO (08:01)
[2024-09-04] MEDS: Liothyronine Sodium 25 MCG TABLET 12.5 MCG PO (08:01)
[2024-09-04] MEDS: NaPROXEN 500 MG TABLET PO (08:52)
[2024-09-04] MEDS: Lidocaine 4 % Patch ADH..PATCH 3 PATCH TRANSDERMA (09:10)
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
== END 2024-09-04 12:18 | disposition home or self-care (01) | DRG 885 ==
LOC: HO.ED 17:31 → HO.PADLT16 20:32
PROVIDERS: Physician Assistant; Admitting Provider Social Worker; Emergency Provider Internal Medicine; Responsible Provider Registered Nurse; Visit Provider Psychiatry & Neurology Psychiatry
DX: F31.9 Bipolar disorder, unspecified (principal); F90.9 Attention-deficit hyperactivity disorder, unspecified type; F43.10 Post-traumatic stress disorder, unspecified; F15.10 Other stimulant abuse, uncomplicated; Z79.51 Long term (current) use of inhaled steroids; Z79.899 Other long term (current) drug therapy
CPT/HCPCS: 36415; 80053; 80061; 80307; 81001; 82607; 82746; 83036; 83735; 84443; 84702; 85025; 87086; 93005; 99285; S9485

== ENCOUNTER → 2024-08-30 19:44 | Outpatient (BNV) | payer MEDICARE, MEDICAID, SELFPAY | PROVIDERS: Admitting Provider Social Worker; Emergency Provider Internal Medicine; Responsible Provider Registered Nurse; Visit Provider Internal Medicine Cardiovascular Disease | DX: R00.0 Tachycardia, unspecified (principal) | CPT/HCPCS: 93010 ==

== ENCOUNTER → 2024-08-30 20:06 | Outpatient (BNV) | payer MEDICARE, MEDICAID, SELFPAY | PROVIDERS: Admitting Provider Social Worker; Emergency Provider Internal Medicine; Responsible Provider Registered Nurse; Visit Provider Psychiatry & Neurology Psychiatry | DX: F31.9 Bipolar disorder, unspecified (principal); F43.10 Post-traumatic stress disorder, unspecified; F90.9 Attention-deficit hyperactivity disorder, unspecified type; F15.10 Other stimulant abuse, uncomplicated | CPT/HCPCS: 99238 ==

== ENCOUNTER 2025-03-13 15:04 | Emergency (ER) | payer OTHER, SELFPAY ==
--- NOTE | ~2025-03-13 | XR_ITS ---
EXAMINATION: XR ABDOMEN KUB CLINICAL INDICATION: constipation, AP COMPARISON: None available. TECHNIQUE: AP view of the abdomen. FINDINGS: There is a normal/nonspecific bowel gas pattern. There is no focally dilated loop of bowel. There is a moderate amount of fecal material seen throughout the colon and rectum. No organomegaly. No large abdominal mass. There are surgical clips overlying the mid abdomen. No abnormal soft tissue calcifications. An IUD is present within the central pelvis. No acute bony abnormalities. There is a mild right convex scoliosis of the lumbar spine with associated moderate degenerative changes at L4-5 and L5-S1. XR/XR KUB IMPRESSION: 1. No bowel obstruction or acute finding. 2. Moderate constipation. Electronically signed by: Raciel Alvarez MD 03/13/2025 04:27 PM EDT
[2025-03-13 15:10] VITALS: BP 124/86; PULSE 78; O2SAT 98
[2025-03-13 15:46] VITALS: BP 133/83; PULSE 71; RESP 18; TEMP 36.6; O2SAT 98; BMI 36.9
--- NOTE | 2025-03-13 15:50 | ED.ABDPAIN ---
HPI - Abdominal Pain General Chief Complaint: Abdominal Pain Stated Complaint: ABD PAIN S/P TAKING LAXATIVE PER EMS Related Data Home Medications ?Medication ?Instructions ?Recorded ?Confirmed amlodipine 10 mg tablet 10 mg PO DAILY 08/30/24 08/31/24 clonazepam 1 mg tablet 1 mg PO BEDTIME 08/30/24 08/31/24 dextroamphetamine-amphetamine ER 1 cap PO BID 08/30/24 08/31/24 37.5 mg capsule, 3 bead, ext rel 24hr magnesium oxide 400 mg (241.3 mg 400 mg PO DAILY constipation 08/30/24 08/31/24 magnesium) tablet omeprazole 20 mg capsule,delayed 20 mg PO BID 08/30/24 08/31/24 release propranolol 20 mg tablet 20 mg PO QAM 08/30/24 08/31/24 fluticasone 500 mcg-salmeterol 50 1 inh inhalation 2XD 08/31/24 08/31/24 mcg/dose blistr powdr for inhalation (Wixela Inhub) levothyroxine 88 mcg tablet 88 mcg PO DAILY 08/31/24 08/31/24 lidocaine 5 % topical patch 3 patch topical Q12H 08/31/24 08/31/24 liothyronine 25 mcg tablet 12.5 mcg PO BID 08/31/24 08/31/24 naproxen 500 mg tablet 500 mg PO BID PRN pain 08/31/24 08/31/24 oxcarbazepine 150 mg tablet 150 mg PO BID 08/31/24 08/31/24 sertraline 100 mg tablet 100 mg PO BID 08/31/24 08/31/24 tirzepatide (weight loss) 5 mg/0.5 5 mg subcut QWEEK 08/31/24 08/31/24 mL subcutaneous pen injector (Zepbound) Previous Rx's ?Medication ?Instructions ?Recorded brexpiprazole 2 mg tablet 2 mg PO DAILY 30 days #30 tabs 09/03/24 Allergies Allergy/AdvReac Type Severity Reaction Status Date / Time haloperidol (From Haldol) AdvReac Unknown DYSTONIA Verified 03/13/25 15:48 risperidone (From Risperdal) AdvReac Unknown TREMORS,JERKY Verified 03/13/25 15:48 MOVEMENTS From Haldol AdvReac Unknown DYSTONIA Uncoded 03/13/25 15:48 From Thorazine AdvReac Unknown LOW BLOOD Uncoded 03/13/25 15:48 PRESSURE PMFSH Past Medical History Medical History (Updated 03/24/25 @ 07:58 by THERESA Pinedo) MDD (major depressive disorder) Schizoaffective disorder Social History Social History Household Members: None Housing: Apartment Do you presently have visiting nurse or other home services: Yes Patient Tobacco Use Status: Never used Tobacco Substance Use Type: Amphetamines Advance Directives: No Advance Directives Information Provided: No service: No Sexual orientation: Straight/Heterosexual Physical Exam ED Vital Signs: Vital Signs - 24 hr 03/13/25 15:46 Temperature 98 F Pulse Rate 71 Respiratory Rate 18 Blood Pressure 133/83 Pulse Oximetry 98 Oxygen Delivery Method Room Air BMI result Body Mass Index 36.9 Course Course Course Narrative: This is an RME: Additional HPI, ROS, PE not included below will be deferred to primary provider. RME assessment and note performed by: Shira Angel PA-C This is a [id number]-male who presents to the ER with a complaint of abdominal pain, patient took laxatives and now has abdominal pain. She states that she had a bowel movement at 1:00 p.m.. She took an ambulance to the emergency room today. Abdomen is soft, diffuse tenderness throughout. Normoactive bowel sounds Plan: Labs, KUB x-ray Reevaluation(s) Reevaluation #1: Patient left without completing treatment. Medical Decision Making Lab Data 03/13/25 17:35 03/13/25 17:35 Labs: Lab Results 03/13/25 Range/Units 17:35 WBC 5.1 (4.8-10.8) X10*3/uL RBC 3.80 L (4.20-5.50) X10*6/uL Hgb 11.8 L (12.0-16.0) g/dl Hct 34.0 L (37.0-47.0) % MCV 89.5 (80.0-98.0) fL MCH 31.1 (27.0-33.0) pg MCHC 34.7 (31.0-35.0) g/dl RDW 11.9 (11.0-16.0) % Plt Count 300 (160-400) X10*3/uL MPV 8.6 L (9.4-12.3) fL Immature Gran % (Auto) 0.0 (0.0-0.4) % Neut % (Auto) 63.7 (45-73) % Lymph % (Auto) 19.7 L (20-40) % [place] % (Auto) 14.6 H (2-11) % Eos % (Auto) 1.4 (0-4) % Baso % (Auto) 0.6 (0-2) % Lymph # (Auto) 1.0 L (1.2-4.9) X10*3/uL [place] # (Auto) 0.8 (0.1-1.2) X10*3/uL Eos # (Auto) 0.1 (0.0-0.4) X10*3/uL Baso # (Auto) 0.0 (0.0-0.2) X10*3/uL Abs Immat Gran (auto) 0.00 (0.00-0.03) X10*3/uL Absolute Neuts (auto) 3.3 (2.0-8.3) x10*3/uL Absolute Nucleated RBC 0.000 (0.0-0.012) X10*3/uL Nucleated RBC % (auto) 0.0 (0.0-0.2) /100WBC Sodium 131 L (135-145) mmol/L Potassium 3.8 (3.3-5.1) mmol/L Chloride 101 (96-108) mmol/L Carbon Dioxide 23 (22-29) mmol/L Anion Gap 11 L (12-20) BUN 7 L (9-16) mg/dL Creatinine 0.62 (0.5-1.4) mg/dL Estim Creat Clear Calc 132.6 Estimated GFR > 60 Random Glucose 95 (60-115) mg/dL Calcium 8.9 (8.4-10.2) mg/dL Magnesium 1.9 (1.6-2.6) mg/dL Total Bilirubin 0.3 (0.0-1.0) mg/dL Direct Bilirubin 0.1 (0.0-0.5) mg/dL AST 19 (5-31) U/L ALT 26 (0-31) U/L Alkaline Phosphatase 72 (39-117) U/L Total Protein 6.8 (6.5-8.0) g/dL Albumin 4.2 (3.5-5.0) g/dL Beta HCG, Quant < 2 mIU/mL Discharge Plan Discharge Clinical Impression: Abdominal pain Patient Disposition: Left W/O Completing Treatment Prescriptions: No Action amlodipine 10 mg tablet 10 mg PO DAILY omeprazole 20 mg capsule,delayed release(DR/EC) 20 mg PO BID clonazepam 1 mg tablet 1 mg PO BEDTIME magnesium oxide 400 mg (241.3 mg magnesium) tablet 400 mg PO DAILY propranolol 20 mg tablet 20 mg PO QAM dextroamphetamine-amphetamine 37.5 mg capsule, ER triphasic 24 hr 1 cap PO BID oxcarbazepine 150 mg tablet 150 mg PO BID liothyronine 25 mcg tablet 12.5 mcg PO BID sertraline 100 mg tablet 100 mg PO BID lidocaine 5 % adhesive patch,medicated 3 patch topical Q12H fluticasone propion-salmeterol [Wixela Inhub] 500-50 mcg/dose blister with device 1 inh INHALATION 2XD naproxen 500 mg tablet 500 mg PO BID PRN (Reason: pain) Zepbound 5 mg/0.5 mL pen injector 5 mg subcut QWEEK levothyroxine 88 mcg tablet 88 mcg PO DAILY brexpiprazole 2 mg tablet 2 mg PO DAILY 30 Days Qty: 30 0RF Discharge Date/Time: 03/13/25 21:36
[2025-03-13 17:38] LABS: MANUAL DIFF FLAG NO
[2025-03-13 17:39] LABS: Hematocrit 34.0 % (37.0-47.0); Hemoglobin 11.8 g/dl (12.0-16.0); Imm Gran Abs Auto 0.00 X10*3/uL (0.00-0.03); Imm Gran Pct Auto 0.0 % (0.0-0.4); Lymphocytes Absolute Auto 1.0 X10*3/uL (1.2-4.9); Mean Corpuscular HGB Conc 34.7 g/dl (31.0-35.0); Mean Corpuscular Hemoglobin 31.1 pg (27.0-33.0); Mean Corpuscular Volume 89.5 fL (80.0-98.0); NRBC Abs Auto 0.000 X10*3/uL (0.0-0.012); NRBC Pct Auto 0.0 /100WBC (0.0-0.2); Platelet Count 300 X10*3/uL (160-400); Red Blood Count 3.80 X10*6/uL (4.20-5.50); White Blood Count 5.1 X10*3/uL (4.8-10.8)
[2025-03-13 18:00] LABS: Alanine Aminotransferase 26 U/L (0-31); Albumin Level 4.2 g/dL (3.5-5.0); Alkaline Phosphatase 72 U/L (39-117); Anion Gap 11 (12-20); Aspartate Amino Transferase 19 U/L (5-31); Blood Urea Nitrogen 7 mg/dL (9-16); Calcium 8.9 mg/dL (8.4-10.2); Carbon Dioxide 23 mmol/L (22-29); Chloride 101 mmol/L (96-108); Creatinine Clr Calc Pharmacy 132.6; Estimated Glomerular Filt Rate > 60; Magnesium 1.9 mg/dL (1.6-2.6); Potassium 3.8 mmol/L (3.3-5.1); Sodium 131 mmol/L (135-145); Total Protein 6.8 g/dL (6.5-8.0)
--- NOTE | 2025-03-13 19:15 | PC.NURSE ---
patient came up to triage room and reporting pain is better. PA spoke with patient and discussed and encouraged to stay for further treatment. Patient was adamant about needing to leave. LWCT.
== END 2025-03-13 21:36 | disposition left against medical advice (07) ==
LOC: HO.ED 21:35
PROVIDERS: Physician Assistant Medical; Emergency Provider Emergency Medicine
DX: R10.9 Unspecified abdominal pain (principal)
CPT/HCPCS: 36415; 74018; 80048; 80076; 83735; 84702; 85025; 99281

== ENCOUNTER → 2025-03-13 15:49 | Outpatient (BNV) | payer OTHER, MEDICAID, SELFPAY | PROVIDERS: Visit Provider Radiology Diagnostic Radiology | DX: K59.00 Constipation, unspecified (principal) | CPT/HCPCS: 74018 ==